=== PATIENT | female | born 1950 | race Caucasian/White ===

== ENCOUNTER → 2017-01-01 | Outpatient (CLI) | payer OTHER ==
[~2017-01-01] VITALS: Ht 208.3 cm; Wt 85.7 kg
[~2017-01-01] MED LIST: ACETAMINOPHEN-1 EAC1 PO; ASPIR 8181 MG PO; ATIVAN0.5 MG PO; BENADRYL25 MG PO; COREG25 MG PO; FLEXERIL PO; LOPERAMIDE 2 MG2 M1 PO; NYQUIL; TYLENOL325 MG PO
--- NOTE | ~2017-01-01 | HPC ---
[facility] [address] [address] PAIN MANAGEMENT CONSULTATION Name: GINNY CASAS Room #: REG COLT Vanna.#: [id number] Admission: 01/01/17 Attend Phys: Gee Rhoades MD Discharge: Date of : 54 Report #: [id number] THIS REPORT FOR: //name// CC: Dr. Kenyetta Rhoades DATE OF SERVICE: 01/01/2017 Followup visit for excruciating low back pain. The patient is a 66-year-old who I have seen off and on in the pain clinic dating back to 1996. She has been seen intermittently and infrequently for an epidural injection. She made an appointment today to get an injection because of increasing back pain. She describes it as excruciating, continuous, constant, shooting, stabbing. Pain score is 10/10. Pain radiates from her back down into the posterolateral aspect of each leg, does not go much below her calves. The patient is fairly debilitated. Even 4 years ago, I noted that she had been almost bedfast over the course of an entire year. Not much seems to change. Her is with her today. She tells a story that she spends most of her time in the bed. She gets up from the bed and goes to the bathroom and comes back to bed, standing spending a lot of time there. There clearly is some psychosocial component to this ongoing pain and at one point, she had a severe episode of raciel which caused me to refer her to [facility]. She says she is not receiving any psychiatric care at this point in time. Her weight has fluctuated wildly. Two years ago, her weight was 82 pounds. Now, she is 189 pounds. She says one of the reasons she does not get out of because she has such a large pendulous breast that she has inability to find support for them in [facility]. Despite this, she and her planned a car trip tomorrow. They are driving to [facility] to go see her fifth grandchild. She is hopeful that the injection will allow her to travel more comfortably. MEDICATIONS: Lorazepam, Tylenol No. 3, Flexeril, Coreg, aspirin, , Benadryl, Tylenol, Imodium; doses are on the electronic medical record. ALLERGIES: To PENICILLIN. PAST MEDICAL HISTORY: Positive for hypertension, distant seizure disorder. She has a history of heart disease with an ID in 2004. She has been treated for gastritis in the past. She had a PTCA with angioplasty performed around the time of her ID. She has had some lipoma resections, which she says resulted in [facility] [address] [place] [address] PAIN MANAGEMENT CONSULTATION Name: GINNY CASAS Room #: REG COLT Merchant#: [id number] Admission: 01/01/17 Attend Phys: Gee Rhoades MD Discharge: Date of : 54 Report #: [id number] some nerve damage. SOCIAL HISTORY: She has 3 children, 2 living in [place], 1 in [facility]. She continues to smoke a half pack of cigarettes a day. She denies use of alcohol. She has a supportive with whom she lives with and he is here with her today. Her level of debility is certainly abnormal. Impact of pain scores is high for many activities of daily living including walking, normal work, sleep and enjoyment of life, all 7-10/10. REVIEW OF SYSTEMS: Positive for fatigue, weakness, headaches, shortness of breath, heart trouble, chronic cough, shortness of breath, abdominal pain. On the psychiatric questionnaire, she circles nervousness and insomnia. PHYSICAL EXAMINATION: GENERAL: She is pleasant female in a wheelchair. She came in her housecoat. She is wearing FitFlop sandals. Certainly, this is unusual presentation. She was pleasant. Her insight to her pain seems adequate. She tells me the story of her inactivity without remorse or discouragement. Her blood pressure is 127/77, heart rate is 82, respirations 16, O2 sat is 96. CHEST: Clear to auscultation without wheezing. CARDIAC: Rhythm was regular, I could not hear a murmur. ABDOMEN: Soft. MUSCULOSKELETAL: Examination of the spine reveals normal range of motion. She actually improves with extension. There is no significant tenderness over the sacroiliac joints. Straight leg raising reproduces pain radiating down the posterolateral aspect of each leg. She denies numbness, tingling or weakness in lower extremities. Ambulation is performed without fall or fall risk. IMPRESSION: Low back pain with radiculopathy, bilateral L5-S1. The patient specifically made her appointment today for an epidural injection because of a previous good response. I do think that her duration of response to these injections is short and she has requested if we could repeat the injection. We do not typically suggest a series of injections, but for some patients providing more than 1 injection over the course of 3 months can provide for a longer duration of response. I will be happy to reconsider that a month or so down the line. PROCEDURE: Lumbar epidural injection L4-L5 under fluoroscopic guidance. PROCEDURE NOTE: She was taken to fluoroscopic suite, placed prone, skin prepped with ChloraPrep. Skin was anesthetized over L4-L5. A 20-gauge Tuohy epidural needle advanced in the epidural space in first attempt, no blood or CSF was aspirated. 1 mL of Omnipaque was injected with good spread of dye observed into the epidural space. This was followed by 3 mL of 0.5% lidocaine mixed with 80 [facility] [address] [place] [address] PAIN MANAGEMENT CONSULTATION Name: GINNY CASAS Room #: REG COLT Prabhakar.#: [id number] Admission: 01/01/17 Attend Phys: Gee Rhoades MD Discharge: Date of : 54 Report #: [id number] mg of triamcinolone. She tolerated the procedure well. In recovery room, she requested to lay down. She lays down typically at home most of the day, so we will let her do that and discharge when she is stable. Followup as needed. By: [id number] Gee Rhoades MD /nt
[2017-01-01 10:25] VITALS: BP 127/77
== END | disposition home or self-care (01) ==
LOC: PAIN 06:45
DX: M54.16 Radiculopathy, lumbar region (principal); I10 Essential (primary) hypertension; I25.2 Old myocardial infarction; G40.802 Other epilepsy, not intractable, without status epilepticus; F17.200 Nicotine dependence, unspecified, uncomplicated; Z98.61 Coronary angioplasty status; Z98.890 Other specified postprocedural states

== ENCOUNTER → 2017-02-16 | Outpatient (CLI) | payer OTHER ==
[~2017-02-16] VITALS: Ht 157.5 cm; Wt 81.0 kg
[~2017-02-16] MED LIST changes: +IMDUR 30 MG TAB30 M1 PO; +LASIX 20 MG TAB20 MG PO
--- NOTE | ~2017-02-16 | HPC ---
[facility] [address] [address] PAIN MANAGEMENT CONSULTATION Name: GINNY CASAS Room #: REG COLT Vanna.#: [id number] Admission: 02/16/17 Attend Phys: Gee Rhoades MD Discharge: Date of : 54 Report #: [id number] THIS REPORT FOR: //name// CC: Sean Rhoades DATE OF SERVICE: 02/16/2017 Followup visit for chronic low back pain with radiculopathy into both lower extremities. The patient returns to pain clinic today and I am pleased to report that she really had a nice response to her last injection. She had the injection, the day before she and her left to go to [place] to see grandchildren. She was able to make the ride without significant pain. Once she arrived there, she was more active than she has been in years. Her reports that she is still much more active than she has been. She tells me today; however, that she still spends a lot of her time in bed. It has been better. She and her have actually been out to dinner some over the course of the last month, so they are pleased with the results from the epidural injection performed 2 months ago. She has an upcoming trip planned to [place], would like to get another injection just before she leaves and so we scheduled for that injection on 03/02/2017 and will see preauthorization from her insurance company. Given the fact that she has responded to this therapy, other options are limited and we would like to avoid the use of opioid analgesics. I am very much hopeful that we will get this approved in time for her injection. On physical exam, she is pleasant, not overly so, she has a history of raciel. She seems stable today. Her blood pressure is 135/88. She is in her housecoat and wears flip-flops. She is able to sit, move from sitting to standing position and take a few steps without difficulty. She has tenderness across her low back. Straight leg raising is negative and deep tendon reflexes are absent bilaterally. IMPRESSION: 1. Low back pain with radiculopathy. 2. Severe debility. 3. Spinal stenosis and neural foraminal stenosis. 4. 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 5. Coronary artery disease. 6. Hypertension. [facility] [address] [place] [address] PAIN MANAGEMENT CONSULTATION Name: GINNY CASAS Room #: REG CLSelina Merchant#: [id number] Admission: 02/16/17 Attend Phys: Gee Rhoades MD Discharge: Date of : 54 Report #: [id number] RECOMMENDATIONS: Repeat epidural injection before her next traveling event. We will see her back towards the end of February. By: [id number] Gee Rhoades MD /nt
[2017-02-16 14:08] VITALS: BP 124/60
== END ==
LOC: PAIN 07:53
DX: M54.16 Radiculopathy, lumbar region (principal); M48.06 Spinal stenosis, lumbar region; F31.9 Bipolar disorder, unspecified; I25.10 Atherosclerotic heart disease of native coronary artery without angina pectoris; I10 Essential (primary) hypertension; F17.210 Nicotine dependence, cigarettes, uncomplicated

== ENCOUNTER → 2017-03-02 | Outpatient (CLI) | payer OTHER ==
[~2017-03-02] VITALS: Ht 157.5 cm; Wt 79.4 kg
[~2017-03-02] MED LIST changes: +ZANTAC 150MG T150 MG PO
--- NOTE | ~2017-03-02 | HPC ---
[facility] [place] [address] [address] [place] [address] PAIN MANAGEMENT CONSULTATION Name: GINNY CASAS Room #: REG COLT Vanna.#: [id number] Admission: 03/02/17 Attend Phys: Gee Rhoades MD Discharge: Date of : 54 Report #: [id number] THIS REPORT FOR: //name// CC: GERTRUDE Rhoades DATE OF SERVICE: 03/02/2017 Followup visit for low back pain with radiculopathy. The patient returns to pain clinic today and we have received approval to proceed with a lumbar epidural steroid injection. Pain is primarily on the right, although she does have some left-sided pain. Pain emanates from the L4-L5 region where we previously performed the injection with good results. We reviewed the procedure today discussed at her last visit. We were unable to provide the injection on that date due to the insurance company requirements. There were no additional questions. There have been no significant changes in her medical history since our last visit. PHYSICAL EXAMINATION: She is in her housecoat in a wheelchair. She is pleasant, alert and oriented without signs of depression or anxiety or overmedication. Her blood pressure is 124/80, heart rate is 81. She is able to independently ambulate with pain. Straight leg raising is positive primarily on the right. She describes it as ____ sensation. IMPRESSION: Lumbar radiculopathy, L4-L5. PROCEDURE: L4-L5 right paramedian epidural injection using a translaminar approach. PROCEDURE: She was taken to the fluoroscopic suite, placed prone, skin prepped with ChloraPrep. Skin anesthetized over the L4-L5 interspace to the right of midline. A 20-gauge Tuohy epidural needle advanced in the epidural space with loss of resistance. No blood or CSF aspirated. AP and lateral views demonstrated excellent spread of Omnipaque before injection. I injected 3 mL of 0.5% lidocaine mixed with 80 mg of triamcinolone. She tolerated the procedure well and was observed for 45 minutes and discharged. Follow up as needed. By: [id number] Gee Rhoades MD /nt
[2017-03-02 14:36] VITALS: BP 115/73
== END ==
LOC: PAIN 06:38
DX: M54.5 Low back pain (principal); M54.16 Radiculopathy, lumbar region; I10 Essential (primary) hypertension; F17.210 Nicotine dependence, cigarettes, uncomplicated

== ENCOUNTER → 2018-07-12 | Outpatient (CLI) | payer OTHER ==
[~2018-07-12] VITALS: Ht 157.5 cm; Wt 74.8 kg
[~2018-07-12] MED LIST changes: +ALEVE220 MG PO; +GAVISCON LIQUI355 ML PO; -ZANTAC 150MG T150 MG PO; +ZANTAC 7575 MG PO; +[UNRECOGNIZED DRUG - OTHER] TOP
--- NOTE | ~2018-07-12 | HPC ---
[facility] [address] [address] PAIN MANAGEMENT CONSULTATION Name: GINNY CASAS Room #: REG COLT MKhai.#: [id number] Admission: 07/12/18 Attend Phys: Gee Rhoades MD Discharge: Date of : 54 Report #: [id number] THIS REPORT FOR: //name// CC: GERTRUDE JAMES Physician staff Gee Rhoades DATE OF SERVICE: 07/12/2018 HISTORY OF PRESNET ILLNESS: The patient returns to the pain clinic today with her for an epidural steroid injection. She was last seen on 06/21/2018. We were unable to perform an injection on that date. She has received preauthorization to go forward. She has responded nicely to these injections in the past. Today, she reports pain as a level of 9/10. It is in her low back. It radiates into the legs bilaterally. PQRS shows BMI of 30.2. History of osteoarthritis of the neck and spine. She is a fall risk and needs help walking and standing. She wears her housecoat around most days. She is on no blood thinner, but has a history of hypertension. She is not receiving medication from our clinic. She continues to smoke 6-8 cigarettes per day and was counseled. She drinks alcohol as well. PHYSICAL EXAMINATION: Reveals tenderness across the low back. Positive straight leg raising bilaterally. Deep tendon reflexes diminished. Sensation intact. No focal weakness on general exam. Gait is slow and antalgic. IMPRESSION: 1. Debility. 2. Chronic low back pain with radiculopathy. PROCEDURE: Epidural steroid injection at L4-L5 under fluoroscopic guidance. DESCRIPTION OF PROCEDURE: She was taken to fluoroscopic suite, placed prone. Skin prepped with ChloraPrep. Skin anesthetized over L4-L5. A 20-gauge Tuohy epidural needle advanced in the epidural space with loss of resistance. There was no blood or CSF aspirated. A 1 mL of Omnipaque was injected. Good spread of dye observed in the epidural space, followed by 3 mL of 0.5% lidocaine mixed with 80 mg triamcinolone. She tolerated the procedure well, was observed for 45 minutes and discharged. Follow up as needed. By: [id number] Gee Rhoades MD /nt
[2018-07-12 09:36] VITALS: BP 140/73
== END | disposition home or self-care (01) ==
LOC: PAIN 07:30
DX: M54.16 Radiculopathy, lumbar region (principal); G89.29 Other chronic pain; R53.81 Other malaise; I10 Essential (primary) hypertension; F17.210 Nicotine dependence, cigarettes, uncomplicated; Z88.0 Allergy status to penicillin; Z88.2 Allergy status to sulfonamides; Z88.8 Allergy status to other drugs, medicaments and biological substances; Z79.899 Other long term (current) drug therapy; Z79.82 Long term (current) use of aspirin